=== PATIENT | female | born 1935 | race Hispanic/Latino ===

== ENCOUNTER 2017-11-03 13:20 | Emergency (ER) | payer MEDICARE ==
[2017-11-03 13:55] VITALS: BP 171/58
[2017-11-03] MEDS ORDERED: NACL 0.9% 500 ML IR ONE ×2 (13:59→18:06)
[2017-11-03] MEDS ORDERED: TYLENOL ONE (15:08)
[2017-11-03] MEDS ORDERED: TYLENOL PO ONE (15:13)
--- NOTE | 2017-11-03 16:34 | Cat Scan Report ---
FINAL REPORT EXAM: CT HEAD/BRAIN WO CON HISTORY: headache TECHNIQUE: Noncontrast CT axial images of the brain. PRIORS: None. FINDINGS: No parenchymal mass, mass effect, hemorrhage, midline shift or hydrocephalus. No evidence of acute cortical infarct. No abnormal, extra-axial fluid or air collection. Mild, patchy low density in the periventricular and subcortical white matter is nonspecific, but may relate to chronic small vessel ischemic change. Bilateral basal ganglia calcifications. Age-related volume loss. Osseous calvarium grossly intact. IMPRESSION: 1. No acute intracranial findings. 2. Chronic ischemic and atrophic changes. 2
[2017-11-03] MEDS ORDERED: XYLOCAINE 1% 20 mL INFILTRATI ONE (17:09)
--- NOTE | 2017-11-03 17:30 | Emergency Department Report ---
HPI - General Chief Complaint: Fall Time Seen by Provider: 11/03/17 15:03 - HPI HPI: The patient is a 82-year-old female who presents for evaluation status post fall. The patient states that she lost her balance and tripped and fell backwards at her half-way approximately one hour prior to arrival per her daughter who is present at the bedside. She complains of a mild achy posterior headache, constant since her fall, exacerbated with movement of the head. Her daughter states that she is exhibiting normal behavior and mental status consistent with her baseline. The patient denies facial pain, neck pain, neck stiffness, chest pain, dyspnea, abdominal pain, back pain, pain in the arms or legs, vision or hearing changes, smell or taste changes, paresthesias, facial drooping, slurred speech, seizure-like activity, urine or bowel incontinence or retention, or other focal neurological deficit. ED Past Medical Hx - Past Medical History Additional medical history: Hypothyroid, Alzhemia, Shakes - Surgical History Past Surgical History?: No - Social History Smoking Status: Former Smoker - Medications Home Medications: Home Medications Medication Instructions Recorded Confirmed Last Taken Type Acetaminophen [Tylenol] 500 mg PO Q6HR #20 tablet 11/03/17 Unknown Rx Sulfamethoxazole/Trimethoprim 1 each PO BID #10 tablet 11/03/17 Unknown Rx [Bactrim DS TAB] ED Review of Systems ROS: Stated complaint: HEAD PAIN Other details as noted in HPI Constitutional: denies: fever ENT: denies: throat or neck pain Respiratory: denies: cough, shortness of breath Cardiovascular: denies: chest pain Endocrine: denies unexplained weight loss or gain Gastrointestinal: denies: abdominal pain, nausea Genitourinary: denies: dysuria Musculoskeletal: denies: leg swelling Skin: denies: rash Neurological: reports headache Hematological/Lymphatic: denies: easy bleeding or easy bruising Psych: denies sadness or hopelessness Physical Exam - Physical Exam Vital Signs: Vital Signs 11/03/17 13:40 Temperature 97.5 F L Pulse Rate 65 Respiratory 16 Rate Blood Pressure 171/58 O2 Sat by Pulse 98 Oximetry Physical Exam: General: well-nourished, well-developed, no acute distress Head: Normocephalic, 2 cm laceration present to the occipital scalp, bleeding controlled Eyes: normal sclera ENT: Mucous membranes are pink and moist Neck: trachea midline, neck supple, No neck stiffness, no cervical adenopathy, no midline cervical or thoracic bony tenderness overlying spinous process Respiratory: Breath sounds equal bilaterally, no wheezing, rales, or rhonchi Cardio: S1 and S2 present, no murmurs, rubs, gallops, capillary refill is brisk Abdomen: Normoactive bowel sounds, soft abdomen, no tenderness Chest WALL/Back: No tenderness to palpation of the chest wall, no CVA tenderness with percussion, no flank bruising/ecchymosis Musc: No tenderness with palpation of the major joints including shoulders, elbows, hips, knees, and ankles Skin: No rash Neuro: no facial drooping, normal speech, alert and oriented, no gross sensation or motor deficits on neuro exam Psych: Normal affect ED Course Vital Signs 11/03/17 13:40 Temperature 97.5 F L Pulse Rate 65 Respiratory 16 Rate Blood Pressure 171/58 O2 Sat by Pulse 98 Oximetry - Laceration /Wound Repair Posterior Occipital Wound Location: head Wound Length (cm): 4 Wound's Depth, Shape: superficial Wound Explored: clean Irrigated w/ Saline (ccs): 250 Betadine Prep?: Yes Anesthesia: 1% Lidocaine Volume Anesthetic (ccs): 5 Layer Closure?: No Progress: wound repaired with arthur, 14 arthur, wound edges well approximated, bleeding controlled ED Medical Decision Making - Medical Decision Making The patient was seen and examined by myself. The patient is placed on a quality assurance monitor body and continuous pulse ox. On initial evaluation, the patient was found to be in no distress. Evaluation orders were placed. The patient given Tylenol for pain. CT scan of the head is negative for acute intracranial disease process. CT scan of the cervical spine is unremarkable. Laceration repairs performed with arthur. The patient was reevaluated and reported that their symptoms were markedly improved. The patient is stable for discharge with outpatient follow-up. The patient is given follow-up and return instructions. The patient expressed understanding and agreed with the plan. The patient is discharged in stable condition. Critical care attestation.: If time is entered above; I have spent that time in minutes in the direct care of this critically ill patient, excluding procedure time. ED Disposition Clinical Impression: Acute post-traumatic headache, not intractable Occipital scalp laceration Qualifiers: Encounter type: initial encounter Qualified Code(s): S01.01XA - Laceration without foreign body of scalp, initial encounter Disposition: DC-01 TO HOME OR SELFCARE Is pt being admited?: No Does the pt Need Aspirin: No Condition: Stable Instructions: Laceration (ED), Fall Prevention for Older Adults (ED), Acute Headache (ED), Staple Care (ED) Additional Instructions: Follow-up with your primary care provider in 2 weeks for removal of the arthur. Prescriptions: Acetaminophen [Tylenol] 500 mg PO Q6HR #20 tablet Sulfamethoxazole/Trimethoprim [Bactrim DS TAB] 1 each PO BID #10 tablet Referrals: PRIMARY CARE, [Primary Care Provider] - 3-5 Days [facility] [Outside] - 3-5 Days Time of Disposition: 17:44
--- NOTE | 2017-11-03 17:49 | Cat Scan Report ---
FINAL REPORT EXAM: CT CERVICAL SPINE WO CON HISTORY: lower neck pain TECHNIQUE: Spiral CT scanning of the cervical spine, with axial and multiplanar reformations. PRIORS: None. FINDINGS: Diffuse osteopenia. Mild, multilevel degenerative disc disease and spondylosis, most pronounced in the C5-6 level, including mild bilateral neural foraminal narrowing. No acute compression deformity or gross malalignment of cervical vertebral bodies. No acute fracture identified. No acute, osseous central spinal canal or neural foraminal encroachment. Paraspinal soft tissues grossly unremarkable. IMPRESSION: 1. No acute compression deformity or apparent fracture in the cervical spine. 2. Degenerative spondylosis. Please note that MRI is a far more sensitive modality in the evaluation of degenerative disc disease and followup may be warranted.
[2017-11-03] MEDS ORDERED: BOOSTRIX IM ONE (18:26)
[2017-11-03 19:02] LABS: Basophils # (Auto) 0.1 K/mm3 (0.0-0.1); Basophils % (Auto) 0.8 % (0.0-1.8); Eosinophils # (Auto) 0.1 K/mm3 (0.0-0.4); Eosinophils % (Auto) 1.1 % (0.0-4.3); Hematocrit 40.2 % (30.3-42.9); Hemoglobin 13.8 gm/dl (10.1-14.3); Lymphocytes # (Auto) 1.8 K/mm3 (1.2-5.4); Lymphocytes % (Auto) 18.3 % (13.4-35.0); Mean Corpuscular HGB Conc 34 % (30-34); Mean Corpuscular Hemoglobin 30 pg (28-32); Mean Corpuscular Volume 88 fl (79-97); Monocytes # (Auto) 0.9 K/mm3 (0.0-0.8); Monocytes % (Auto) 8.6 % (0.0-7.3); Platelet Count 240 K/mm3 (140-440); Red Blood Count 4.56 M/mm3 (3.65-5.03); Red Cell Distribution Width 14.1 % (13.2-15.2)
[2017-11-03 19:32] LABS: BUN/Creatinine Ratio 21; Blood Urea Nitrogen 19 mg/dL (7-17); Hemolysis Index 4
== END 2017-11-03 19:19 | disposition home or self-care (01) ==
LOC: ED 13:20
DX: S01.01XA Laceration without foreign body of scalp, initial encounter (principal); Z87.891 Personal history of nicotine dependence; W01.0XXA Fall on same level from slipping, tripping and stumbling without subsequent striking against object, initial encounter; Y93.89 Activity, other specified; Y92.89 Other specified places as the place of occurrence of the external cause; Y99.8 Other external cause status
CPT/HCPCS: 36415; 70450; 72125; 80048; 85025; 90471; 90715; 93005; 93010; 99285